=== PATIENT | female | born 1965 | race Two or more races ===

== ENCOUNTER → 2020-08-08 | Outpatient (CLI) | payer OTHER ==
[~2020-08-08] MED LIST: BENADRYL 50MG C50 MG PO; ZOFRAN ODT 4 MG4 MG SL
== END ==
LOC: MAMO 07-19 08:00
DX: Z53.9 Procedure and treatment not carried out, unspecified reason (principal)

== ENCOUNTER → 2020-10-07 | Outpatient (CLI) | payer OTHER | LOC: MAMO 09:30 | DX: Z12.31 Encounter for screening mammogram for malignant neoplasm of breast (principal) | CPT/HCPCS: 77063; 77067 ==

== ENCOUNTER 2020-12-02 00:13 | Emergency (ER) | payer OTHER ==
[2020-12-02 01:12] LABS: RED BLOOD COUNT 4.73 M/UL (4.00-5.10); WHITE BLOOD COUNT 12.9 K/UL (4.5-11.0)
[2020-12-02 01:43] LABS: BUN/CREATININE RATIO 26 (0-10)
[2020-12-02] MEDS ORDERED: ZOFRAN ODT 4 MG4 MG SL (03:41)
[2020-12-02] MEDS ORDERED: BENADRYL 50MG C50 MG PO (03:41)
== END 2020-12-02 03:47 | disposition home or self-care (01) ==
LOC: ER1 00:13
PROVIDERS: Emergency Medicine
DX: T61.11XA Scombroid fish poisoning, accidental (unintentional), initial encounter (principal); E86.0 Dehydration; Z90.710 Acquired absence of both cervix and uterus
CPT/HCPCS: 80053; 82550; 82553; 83690; 83735; 83874; 84484; 85025; 93005; 96374; 96375; 99285; J1200; J2405